=== PATIENT | female | born 1980 | race Two or more races ===

== ENCOUNTER → 2025-01-21 | Outpatient (CLI) | payer BC, SELFPAY ==
[2025-01-21 12:18] LABS: Basophils # (Auto) 0.1 Thou/mm3 (0.0-0.2); Basophils % (Auto) 1 % (0-2.5); Eosinophils # (Auto) 0.2 Thou/mm3 (0.0-0.5); Eosinophils % (Auto) 3 % (0-10); Hematocrit 36.9 % (36.0-46.0); Hemoglobin 12.9 g/dL (12.0-16.0); Immature Granulocytes % (Auto) 0 % (0-0); Immature Granulocytes Auto 0.03 Thou/mm3 (0.00-0.00); Lymphocytes # (Auto) 2.3 Thou/mm3 (1.0-4.8); Lymphocytes % (Auto) 25 % (10-50); Mean Corpuscular Hemoglobin 30.3 pg (25.0-35.0); Mean Corpuscular Volume 87 fL (80-100); Monocytes # (Auto) 0.6 Thou/mm3 (0.0-0.8); Monocytes % (Auto) 7 % (0-12); Neutrophils # (Auto) 5.9 Thou/mm3 (1.8-7.7); Neutrophils % (Auto) 65 % (37-80); Nucleated Red Blood Cell % 0 /100 WBC (0); Platelet Count 296 Thou/mm3 (140-440); RDW Standard Deviation 39.4 fL (36.4-46.3); Red Blood Count 4.26 Miln/mm3 (4.00-5.20)
[2025-01-21 12:30] LABS: Glucose Estimated Average 97 mg/dL (80-131)
[2025-01-21 12:41] LABS: Alanine Aminotransferase 10 U/L (10-49); Albumin, Serum 3.8 gm/dL (3.5-5.0); Albumin/Globulin Ratio 1.7 (1.2-2.2); Alkaline Phosphatase 45 U/L (46-116); Anion Gap 10 (7-16); BUN/Creatinine Ratio 12 Ratio (12-20); Bilirubin,Total 0.4 mg/dL (0.3-1.2); Blood Urea Nitrogen 7 mg/dL (9-23); Calcium 8.5 mg/dL (8.3-10.6); Calcium (Corrected) 8.7 mg/dL (8.5-10.1); Carbon Dioxide 25.9 mMol/L (20.0-31.0); Cardiac Risk Estimate 2.9 RATIO (3.7-5.6); Chloride 109 mMol/L (98-107); Cholesterol 127 mg/dL (132-200); Creatinine (Component) 0.6 mg/dL (0.6-1.3); Globulin 2.3 gm/dL (2.3-3.5); Glucose 85 mg/dL (74-106); HDL Cholesterol 44 mg/dL (40-60); LDL Cholesterol,Calculated 61 mg/dL (0-130); Osmolality,Calculated 285 (275-295); Potassium 3.6 mMol/L (3.4-5.1); Sodium 145 mMol/L (136-145); Total Protein 6.1 gm/dL (5.7-8.2); Triglycerides 109 mg/dL (30-150); eGFR > 60 See Note
[2025-01-21 12:45] LABS: Hepatitis B Surface Ab NonReact(Not Immune) (Immune); Hepatitis B Surface Antigen Non Reactive (Non React); Vitamin D 25 Hydroxy Total 24.1 ng/mL (7.3-40.2)
[2025-01-24 22:02] LABS: HCV RNA, PCR <15 NOT DETECTED IU/mL
[2025-01-25 06:58] LABS: HCV RNA, PCR Log IU <1.18 NOT DETECTED Log IU/mL; Hepatitis B Core Ab,Total* NONREACTIVE
== END | disposition home or self-care (01) ==
LOC: COPL 11:10
PROVIDERS: PCP Physician Assistant; Referring Provider Physician Assistant; Visit Provider Physician Assistant
DX: E55.9 Vitamin D deficiency, unspecified (principal); Z12.89 Encounter for screening for malignant neoplasm of other sites
CPT/HCPCS: 36415; 80053; 80061; 82306; 83036; 85025; 86704; 86706; 87340; 87522

== ENCOUNTER 2025-06-02 13:32 | Emergency (ER) | payer BC, SELFPAY ==
[2025-06-02 13:50] VITALS: BP 112/77; PULSE 102; RESP 19; TEMP 36.9; O2SAT 98; BMI 29.5
--- NOTE | 2025-06-02 14:21 | PD.EDRME ---
Rapid Medical Screening Exam E Arrival date/time: 06/02/25 13:32 This is a 44-year-old female that comes into the emergency room with complaints of swelling to her inner buttock. Patient states last time she had this problem they had a scan her and then they lanced it. Patient also complains of tampon stuck inside her. Patient states she thinks she placed went in this morning and was not able to take it out. Patient has no urinary symptoms, nausea, vomiting, diarrhea. I have greeted and performed a focused initial assessment of this patient. Initial appropriate labs ordered at this time. A comprehensive ED assessment and evaluation of the patient and analysis of all test and completion of medical decision making process will be conducted by additional ED provider. Chief Complaint: General Adult/Misc Complain Time Seen by Provider: 06/02/25 13:53 Vital signs: Vital Signs Temperature 98.5 F 06/02/25 13:50 Pulse Rate 102 H 06/02/25 13:50 Respiratory Rate 19 06/02/25 13:50 Blood Pressure 112/77 06/02/25 13:50 Pulse Oximetry (%) 98 06/02/25 13:50 Oxygen Delivery Method Room Air 06/02/25 13:50
--- NOTE | 2025-06-02 14:24 | XR_ITS ---
Examination: CT abdomen with intravenous contrast CT pelvis with intravenous contrast 2-D coronal reconstructions 2-D sagittal reconstructions Date and time of exam: June 02, 2025, 1734 hours, comparison CT pelvis 05/03/2022 INDICATIONS: Redness swelling and pain involving the right buttock region beginning 1 week ago. CTDI: vol (mGy) 8.96 DLP: (mGycm) 495 Technique: Multiple axial sections of the abdomen and pelvis have been obtained. 64 slice high-resolution scanner used. 3 mm axial sections have been obtained, post intravenous injection 60 cc of Isovue-370 2-D sagittal, coronal reconstructions obtained. Low dose protocols were performed. One or more of the following dose reduction techniques were used; automated exposure control, adjustment of the mA and/or KV according to patient size, use of iterative reconstruction technique. Findings: Pericardial effusion measuring up to 10 mm No visualized liver or splenic lesion Contracted gallbladder No pancreatic or adrenal mass No renal or ureteral calculi, no hydronephrosis Aorta normal size 15 mm fat-containing umbilical hernia Normal appendix No bowel obstruction or diverticulitis Partially retroverted uterus with hypodense endometrial mass, sagittal image 92, irregular margins, measuring up to 27 mm Mild free fluid in the cul-de-sac Cervical region is prominent Cellulitis pattern in the medial upper right thigh with skin thickening, axial image 265 which is slightly less prominent compared to CT pelvis 05/03/2022 No fluid-filled abscess Negative for osteomyelitis Advanced disc narrowing L5-S1 IMPRESSION: Abnormal hypodense endometrial mass measuring up to 27 mm and prominent cervix, recommend transvaginal trans abdominal pelvic sonography follow-up Cellulitis pattern in the upper medial thigh slightly less prominent compared to the CT pelvis 05/03/2025
[2025-06-02 14:55] LABS: Basophils # (Auto) 0.1 Thou/mm3 (0.0-0.2); Basophils % (Auto) 1 % (0-2.5); Eosinophils # (Auto) 0.1 Thou/mm3 (0.0-0.5); Eosinophils % (Auto) 1 % (0-10); Hematocrit 37.4 % (36.0-46.0); Hemoglobin 13.3 g/dL (12.0-16.0); Immature Granulocytes Auto 0.04 Thou/mm3 (0.00-0.00); Lymphocytes # (Auto) 2.6 Thou/mm3 (1.0-4.8); Lymphocytes % (Auto) 20 % (10-50); Mean Corpuscular HGB Conc 35.6 g/dl (31.0-37.0); Mean Corpuscular Hemoglobin 30.9 pg (25.0-35.0); Mean Corpuscular Volume 87 fL (80-100); Monocytes # (Auto) 0.9 Thou/mm3 (0.0-0.8); Monocytes % (Auto) 7 % (0-12); Neutrophils # (Auto) 9.2 Thou/mm3 (1.8-7.7); Neutrophils % (Auto) 71 % (37-80); Nucleated Red Blood Cell # 0.00 Thou/mm3 (0.00-0.00); Nucleated Red Blood Cell % 0 /100 WBC (0); Platelet Count 300 Thou/mm3 (140-440); RDW Standard Deviation 38.3 fL (36.4-46.3); Red Blood Count 4.31 Miln/mm3 (4.00-5.20); White Blood Count 12.9 Thou/mm3 (3.6-11.0)
[2025-06-02 15:20] LABS: Collection Type, Urine Voided
[2025-06-02 15:29] LABS: Alanine Aminotransferase 10 U/L (10-49); Albumin, Serum 4.3 gm/dL (3.5-5.0); Albumin/Globulin Ratio 1.7 (1.2-2.2); Alkaline Phosphatase 57 U/L (46-116); Anion Gap 8 (7-16); Aspartate Amino Transferase 16 U/L (0-34); BUN/Creatinine Ratio 13 Ratio (12-20); Bilirubin,Total 0.3 mg/dL (0.3-1.2); Blood Urea Nitrogen 8 mg/dL (9-23); Calcium 8.7 mg/dL (8.3-10.6); Calcium (Corrected) 8.7 mg/dL (8.5-10.1); Carbon Dioxide 26.6 mMol/L (20.0-31.0); Chloride 108 mMol/L (98-107); Creatinine (Component) 0.6 mg/dL (0.6-1.3); Estimated Creatinine Clearance 107.7 mL/min (>60); Globulin 2.5 gm/dL (2.3-3.5); Glucose 105 mg/dL (74-106); Osmolality,Calculated 283 (275-295); Potassium 3.0 mMol/L (3.4-5.1); Sodium 143 mMol/L (136-145); Total Protein 6.8 gm/dL (5.7-8.2); eGFR > 60 See Note
[2025-06-02 15:40] LABS: Bilirubin,Urine Negative (Negative); Blood,Urine 3+ (Negative); Color,Urine Lt-Yellow (Lt Yel-Yel); Culture Indicated,Urine Not Indicated; Glucose, Urine Negative (Negative); Ketones,Urine Negative (Negative); Leukocyte Esterase,Urine Negative (Negative); Nitrite,Urine Negative (Negative); PH,Urine 5.5 (5.0-7.0); Protein,Urine Negative (Neg - Trace); RBC,Urine 278 /hpf (0-3); Specific Gravity,Urine 1.022 (1.001-1.035); Squamous Epithelial Cell,Urine < 1 /hpf (0-5); Urobilinogen,Urine Negative mg/dL (0.0-1.0); WBC,Urine 3 /hpf (0-5)
[2025-06-02 16:08] LABS: HCG Qualitative,Urine Negative
[2025-06-02 16:13] LABS: Clarity,Urine Hazy (Clear/Hazy)
--- NOTE | 2025-06-02 16:45 | PD.EDFMALE ---
ED Female Urogenital RME/HPI General Chief complaint: General Adult/Misc Complain Stated complaint: TAMPON STUCK, R BUTTOCK ABSCESS PAIN Time Seen by Provider: 06/02/25 13:53 Arrival date/time: 06/02/25 13:32 RME / HPI RME / HPI Narrative: 06/02/25 13:32 This is a 44-year-old female that comes into the emergency room with complaints of swelling to her inner buttock. Patient states last time she had this problem they had a scan her and then they lanced it. Patient also complains of tampon stuck inside her. Patient states she thinks she placed went in this morning and was not able to take it out. Patient has no urinary symptoms, nausea, vomiting, diarrhea. I have greeted and performed a focused initial assessment of this patient. Initial appropriate labs ordered at this time. A comprehensive ED assessment and evaluation of the patient and analysis of all test and completion of medical decision making process will be conducted by additional ED provider. DR. HELEN MOHAMUD ED EVALUATION: 44-year-old female with no significant past medical history presents to the Emergency Department for concern of a tampon stuck in the vagina since approximately 8:30 AM. She reports being unable to feel or remove the string. Additionally, she complains of a painful boil on the right buttock that has recurred and is tender. Denies fever, chills, abdominal pain, or vaginal discharge. Related Data Previous Rx's ?Medication ?Instructions ?Recorded sulfamethoxazole 800 1 tab PO Q12H #14 tabs 06/04/25 mg-trimethoprim 160 mg tablet (Bactrim DS) Allergies Allergy/AdvReac Type Severity Reaction Status Date / Time No Known Allergies Allergy Verified 06/04/25 08:09 Review of Systems Review of Systems Systems Reviewed: All systems reviewed, normal except as documented Past Medical History Social History SMOKING STATUS: Never smoker SUBSTANCE USE: does not use ALCOHOL: Never ED Exam Narrative Physical exam: GENERAL APPEARANCE: alert and oriented x 4, well-developed, well-nourished, no acute distress VITALS: All vitals were reviewed and the pulse ox is 98% on room air, which is normal according to my interpretation. HEENT: Normocephalic, atraumatic; pupils equal, round, reactive to light; EOMI; mucous membranes pink, moist; oropharynx clear NECK: Supple LUNGS: CTABL; no wheezes, no rales, no rhonchi HEART: Regular rate, regular rhythm; normal S1, S2; no murmurs ABDOMEN: non distended; normal BS; soft, no tenderness, no guarding, no rebound; no masses, no organomegaly, no hernia PELVIC EXAM: No tampon visualized or retained in the vaginal vault; cervix appears normal; no discharge, erythema, or lesions BACK: no CVA tenderness EXTREMITIES: atraumatic; no edema NEUROLOGIC: awake; alert and oriented x4; cranial nerves II-XII grossly intact; no focal sensory or motor deficits PSYCHIATRIC: appropriate mood and affect SKIN: warm, dry, normal color; no rashes Course Quality Measures none Orders Category Date Time Status CT Screening NOW Care 06/02/25 14:[address] abdomen pelvis w con Stat Exams 06/02/25 14:24 Completed CBC Stat Lab 06/02/25 14:43 Completed Comprehensive Metabolic Panel Stat Lab 06/02/25 14:43 Completed HCG Qualitative,Urine Stat Lab 06/02/25 15:14 Completed Urinalysis, C/S if Indicated Stat Lab 06/02/25 15:14 Completed HYDROcodone*/APAP 5/325 [Shandaken 5/325] Med 06/02/25 16:41 Discontinued 1 tab PO X1 ONE Ketorolac Inj [Toradol Inj] Med 06/02/25 16:41 Discontinued 30 mg IM X1 ONE Vital Signs Vital signs: Vital Signs Temperature 98.5 F 06/02/25 13:50 Pulse Rate 102 H 06/02/25 13:50 Respiratory Rate 19 06/02/25 13:50 Blood Pressure 112/77 06/02/25 13:50 Pulse Oximetry (%) 98 06/02/25 13:50 Oxygen Delivery Method Room Air 06/02/25 13:50 Urogenital - Female MDM Narrative MDM Narrative:: I, Tatiana [place] am scribing for and in the presence of Dr. Smith. Patient data External records reviewed:: [facility] previous records Clinical information provided by:: patient Social determinants that could affect healthcare access:: none Patient has the following chronic illnesses:: Denies any PMHx, surgeries, daily medications, or known allergies. How is presenting disease/condition affected by chronic disease/condition?: no chronic disease Evaluation data The following diagnostics were reviewed and interpreted by me:: lab results and radiology exam(s) Lab and/or radiology exams considered but not ordered:: none Interpretation Summary: Pending. Medications / Prescriptions Medications or Prescriptions considered but not ordered:: none Medication administrations:: Medication Administration History Discontinued Medications Hydrocodone Bitart/Acetaminophen (Hydrocodone/Apap 5/325 Tablet) 1 tab PO X1 ONE Stop: 06/02/25 16:42 Last Admin: 06/02/25 16:49 Dose: Not Given Documented By: HORACIO Non-Admin Reason: Per Protocol Ketorolac Tromethamine (Ketorolac Inj 30 Mg/Ml Vial) 30 mg IM X1 ONE Stop: 06/02/25 16:42 Last Admin: 06/02/25 16:47 Dose: 30 mg Documented By: Evelyne see above Consultations Consultation(s) initiated? (list below): No Diagnosis Urogenital Female Differential Diagnosis: other (Vaginal foreign body, vulvar abscess, and cellulitis.) Most likely diagnosis given after review of the tests above:: No official diagnoses at this time, still pending diagnostic tests. Patient signout to the spooling machine operator provider. Admission Indicated Admission indicated?: not indicated Explain why admission is indicated or not indicated:: No final disposition plan at this time, still pending diagnostic tests. Patient signout to the spooling machine operator provider. Admission Request Was there a request for admission?: No Disposition Plan Disposition Plan: other (specify) (Patient signout to the spooling machine operator provider.) Discharge Plan Prescriptions/Referrals Prescriptions/Med Rec: No Action sulfamethoxazole-trimethoprim [Bactrim DS] 800-160 mg tablet 1 tab PO Q12H Qty: 14 0RF Referrals: Sara Greco PA-C [Primary Care Provider] - In 1 week Problem List Clinical Impression: Abscess of buttock, right Patient/Caregiver Discharge Instructions Print Language: Frisian
[2025-06-02] MEDS: KETOROLAC INJ 30 MG/ML VIAL IM (16:47)
--- NOTE | 2025-06-02 16:49 | PC.NURSE ---
JUDITH NOT GIVEN, PT DRIVING AND HAS NO ONE THAT CAN PICK HER UP
--- NOTE | 2025-06-02 16:57 | PC.NURSE ---
nax1 at this time
--- NOTE | 2025-06-02 19:15 | PD.EDADDENDU ---
Emergency Room Addendum <Lorena Carbone - Last Filed: 06/02/25 20:22> Addendum Narrative: 1800: Care assumed from Dr. Smith, the previous shift emergency physician. Past medical, surgical, social and family history reviewed. Vitals and home medications reviewed. Results and treatment plan discussed. I will assume the care of the patient at this time and will follow the patient. Please refer to the emergency department record for history and examination from initial visit. RADIOLOGY RESULTS: [facility] Report Signed Patient: TREY GUTIERREZ [facility]. Record#: [id number] Birthdate: 1980 Age/Sex: 44 / F [facility] Attending Dr: Ordering Physician: Radha Robb NP Date of Service: 06/02/25 Procedure(s): CT abdomen pelvis w con Accession Number(s): [id number] cc: Sara Greco; Jeremy Alexander MD; Radha Robb NP~ Examination: CT abdomen with intravenous contrast CT pelvis with intravenous contrast 2-D coronal reconstructions 2-D sagittal reconstructions Date and time of exam: June 02, 2025, 1734 hours, comparison CT pelvis 05/03/2022 INDICATIONS: Redness swelling and pain involving the right buttock region beginning 1 week ago. CTDI: vol (mGy) 8.96 DLP: (mGycm) 495 Technique: Multiple axial sections of the abdomen and pelvis have been obtained. 64 slice high-resolution scanner used. 3 mm axial sections have been obtained, post intravenous injection 60 cc of Isovue-370 2-D sagittal, coronal reconstructions obtained. Low dose protocols were performed. One or more of the following dose reduction techniques were used; automated exposure control, adjustment of the mA and/or KV according to patient size, use of iterative reconstruction technique. Findings: Pericardial effusion measuring up to 10 mm No visualized liver or splenic lesion Contracted gallbladder No pancreatic or adrenal mass No renal or ureteral calculi, no hydronephrosis Aorta normal size 15 mm fat-containing umbilical hernia Normal appendix No bowel obstruction or diverticulitis Partially retroverted uterus with hypodense endometrial mass, sagittal image 92, irregular margins, measuring up to 27 mm Mild free fluid in the cul-de-sac Cervical region is prominent Cellulitis pattern in the medial upper right thigh with skin thickening, axial image 265 which is slightly less prominent compared to CT pelvis 05/03/2022 No fluid-filled abscess Negative for osteomyelitis Advanced disc narrowing L5-S1 IMPRESSION: Abnormal hypodense endometrial mass measuring up to 27 mm and prominent cervix, recommend transvaginal trans abdominal pelvic sonography follow-up Cellulitis pattern in the upper medial thigh slightly less prominent compared to the CT pelvis 05/03/2025 Dictated By: Jeremy Alexander MD Signed By: <Electronically signed by Jeremy Alexander MD in [place]> 06/02/251809 <Malgorzata Carrillo MD - Last Filed: 06/02/25 20:34> Addendum Narrative: 1800: Care assumed from Dr. Smith, the previous shift emergency physician. Past medical, surgical, social and family history reviewed. Vitals and home medications reviewed. Results and treatment plan discussed. I will assume the care of the patient at this time and will follow the patient. Please refer to the emergency department record for history and examination from initial visit. Patient left AGAINST MEDICAL ADVICE prior to my evaluation. I did call the patient, discussed results of the workup and recommended that she return to the emergency department, however, states that she is unable to come back bc of work. She states that she will return to the emergency department on Tuesday. States that she is unable to come back at this time because of work. Denies any swelling in the perineal area. No difficulty with urination. No fever. 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 Advised that is important that she return to the emergency department to continue to care as soon as possible. States that she will return on Tuesday. RADIOLOGY RESULTS: [facility] Report Signed Patient: TREY GUTIERREZ [facility]. Record#: [id number] Birthdate: 1980 Age/Sex: 44 / F Location: [facility] Attending Dr: Ordering Physician: Radha Robb NP Date of Service: 06/02/25 Procedure(s): CT abdomen pelvis w con Accession Number(s): [id number] cc: Sara Greco; Jeremy Alexander MD; Radha Robb NP~ Examination: CT abdomen with intravenous contrast CT pelvis with intravenous contrast 2-D coronal reconstructions 2-D sagittal reconstructions Date and time of exam: June 02, 2025, 1734 hours, comparison CT pelvis 05/03/2022 INDICATIONS: Redness swelling and pain involving the right buttock region beginning 1 week ago. CTDI: vol (mGy) 8.96 DLP: (mGycm) 495 Technique: Multiple axial sections of the abdomen and pelvis have been obtained. 64 slice high-resolution scanner used. 3 mm axial sections have been obtained, post intravenous injection 60 cc of Isovue-370 2-D sagittal, coronal reconstructions obtained. Low dose protocols were performed. One or more of the following dose reduction techniques were used; automated exposure control, adjustment of the mA and/or KV according to patient size, use of iterative reconstruction technique. Findings: Pericardial effusion measuring up to 10 mm No visualized liver or splenic lesion Contracted gallbladder No pancreatic or adrenal mass No renal or ureteral calculi, no hydronephrosis Aorta normal size 15 mm fat-containing umbilical hernia Normal appendix No bowel obstruction or diverticulitis Partially retroverted uterus with hypodense endometrial mass, sagittal image 92, irregular margins, measuring up to 27 mm Mild free fluid in the cul-de-sac Cervical region is prominent Cellulitis pattern in the medial upper right thigh with skin thickening, axial image 265 which is slightly less prominent compared to CT pelvis 05/03/2022 No fluid-filled abscess Negative for osteomyelitis Advanced disc narrowing L5-S1 IMPRESSION: Abnormal hypodense endometrial mass measuring up to 27 mm and prominent cervix, recommend transvaginal trans abdominal pelvic sonography follow-up Cellulitis pattern in the upper medial thigh slightly less prominent compared to the CT pelvis 05/03/2025 Dictated By: Jeremy Alexander MD Signed By: <Electronically signed by Jeremy Alexander MD in [place]> 06/02/25 [id number]
== END 2025-06-02 20:16 | disposition home or self-care (01) ==
PROVIDERS: Nurse Practitioner Family; Emergency Provider Emergency Medicine; PCP Physician Assistant
DX: L02.31 Cutaneous abscess of buttock (principal)
CPT/HCPCS: 36415; 74177; 80053; 81001; 81025; 85025; 96372; 99283; A4649; J1885; Q9967

== ENCOUNTER 2025-06-04 08:05 | Emergency (ER) | payer BC, SELFPAY ==
[2025-06-04 08:16] VITALS: BP 119/77; PULSE 72; RESP 16; TEMP 36.8; O2SAT 99
--- NOTE | 2025-06-04 08:28 | XR_ITS ---
Examination: Transvaginal ultrasound of the pelvis, complete Technique: Transvaginal sonographic images pelvis performed using rodriguez scale imaging Exam date and time: June 04, 2025, 0935 hours INDICATIONS: Abnormal endometrial mass measuring up to 27 mm with prominent cervix on CT examination pelvis June 02, 2025 FINDINGS: Uterus 9.5 cm Fluid versus blood in the endometrium Mass in the endometrium which is vascular 12 x 6 x 13 mm Right ovary 2.6 cm arterial flow Left ovary 2.7 cm arterial flow IMPRESSION: Recommend MRI pelvis follow-up pre and postcontrast, to assess the abnormal endometrium and exclude early malignant neoplasm of the endometrium.
--- NOTE | 2025-06-04 08:28 | XR_ITS ---
Examination: Abdomen sonogram, complete Date and time of exam: June 04, 2025, 0851 hours INDICATIONS: Abdominal pain this week. Technique: Multiple real-time grayscale transabdominal sonographic images of the abdomen have been obtained. Findings: Normal gallbladder Normal common bile duct 0.2 cm Pancreatic head 2.8 cm Aorta not enlarged. Liver 15 cm fatty infiltration Normal hepatopetal portal venous flow Patent IVC Right kidney 10.7 cm renal cortex 1.8 cm Left kidney 10.5 cm renal cortex 1.7 cm Moderate renal scar formation Spleen 9.8 cm IMPRESSION: Normal gallbladder Normal common bile duct Moderate bilateral renal scar formation
--- NOTE | 2025-06-04 08:29 | EDRME_ITS ---
Rapid Medical Screening Exam [facility] Arrival date/time: 06/04/25 08:05 44-year-old female with no known medical history presents to the emergency room with a chief complaint of tenderness and pain to an abscess in her buttocks area. The patient also states she was sent over by her primary care provider due to abnormal CT results. I have greeted and performed a focused initial assessment of this patient. A comprehensive ED assessment and evaluation of the patient, analysis of all test results, and completion of the medical decision making process will be conducted by additional ED providers. Chief Complaint: Skin/Abscess/Foreign Body Vital signs: Vital Signs Temperature 98.2 F 06/04/25 08:16 Pulse Rate 72 06/04/25 08:16 Respiratory Rate 16 06/04/25 08:16 Blood Pressure 119/77 06/04/25 08:16 Pulse Oximetry (%) 99 06/04/25 08:16 Oxygen Delivery Method Room Air 06/04/25 08:16 Vital signs reviewed by provider: Yes
[2025-06-04 08:49] LABS: Basophils # (Auto) 0.1 Thou/mm3 (0.0-0.2); Basophils % (Auto) 1 % (0-2.5); Eosinophils # (Auto) 0.3 Thou/mm3 (0.0-0.5); Eosinophils % (Auto) 3 % (0-10); Hematocrit 39.7 % (36.0-46.0); Hemoglobin 13.6 g/dL (12.0-16.0); Immature Granulocytes Auto 0.02 Thou/mm3 (0.00-0.00); Lymphocytes # (Auto) 3.3 Thou/mm3 (1.0-4.8); Lymphocytes % (Auto) 36 % (10-50); Mean Corpuscular HGB Conc 34.3 g/dl (31.0-37.0); Mean Corpuscular Hemoglobin 30.2 pg (25.0-35.0); Mean Corpuscular Volume 88 fL (80-100); Monocytes # (Auto) 0.8 Thou/mm3 (0.0-0.8); Monocytes % (Auto) 9 % (0-12); Neutrophils # (Auto) 4.7 Thou/mm3 (1.8-7.7); Neutrophils % (Auto) 51 % (37-80); Nucleated Red Blood Cell # 0.00 Thou/mm3 (0.00-0.00); Nucleated Red Blood Cell % 0 /100 WBC (0); Platelet Count 349 Thou/mm3 (140-440); RDW Standard Deviation 38.9 fL (36.4-46.3); Red Blood Count 4.50 Miln/mm3 (4.00-5.20); White Blood Count 9.2 Thou/mm3 (3.6-11.0)
[2025-06-04 09:15] LABS: Collection Type, Urine Clean Catch
[2025-06-04 09:31] LABS: Bacteria,Urine Rare; Bilirubin,Urine Negative (Negative); Blood,Urine 1+ (Negative); Color,Urine Yellow (Lt Yel-Yel); Glucose, Urine Negative (Negative); Hyaline Casts,Urine < 1 /hpf (0-1); Ketones,Urine Negative (Negative); Leukocyte Esterase,Urine Positive (Negative); Nitrite,Urine Negative (Negative); PH,Urine 6.0 (5.0-7.0); Protein,Urine Trace (Neg - Trace); RBC,Urine 11 /hpf (0-3); Specific Gravity,Urine 1.029 (1.001-1.035); Squamous Epithelial Cell,Urine 18 /hpf (0-5); Urobilinogen,Urine Negative mg/dL (0.0-1.0); WBC,Urine 2 /hpf (0-5)
[2025-06-04 09:35] LABS: Clarity,Urine Hazy (Clear/Hazy)
[2025-06-04 09:42] LABS: Alanine Aminotransferase 9 U/L (10-49); Alkaline Phosphatase 50 U/L (46-116); Anion Gap 9 (7-16); Aspartate Amino Transferase 16 U/L (0-34); BUN/Creatinine Ratio 12 Ratio (12-20); Bilirubin,Total 0.5 mg/dL (0.3-1.2); Blood Urea Nitrogen 7 mg/dL (9-23); Calcium 8.6 mg/dL (8.3-10.6); Carbon Dioxide 27.8 mMol/L (20.0-31.0); Chloride 107 mMol/L (98-107); Creatinine (Component) 0.6 mg/dL (0.6-1.3); Estimated Creatinine Clearance 108.7 mL/min (>60); Glucose 90 mg/dL (74-106); Lipase 34 U/L (12-53); Osmolality,Calculated 284 (275-295); Potassium 3.4 mMol/L (3.4-5.1); Sodium 144 mMol/L (136-145); Total Protein 6.8 gm/dL (5.7-8.2); eGFR > 60 See Note
[2025-06-04 09:42] LABS: HCG Qualitative,Urine Negative
[2025-06-04 09:58] LABS: Albumin, Serum 4.4 gm/dL (3.5-5.0); Albumin/Globulin Ratio 1.8 (1.2-2.2); Calcium (Corrected) 8.6 mg/dL (8.5-10.1); Globulin 2.4 gm/dL (2.3-3.5)
--- NOTE | 2025-06-04 11:23 | PD.EDSKIN ---
ED Skin Abcess FB-RME/HPI General Chief complaint: Skin/Abscess/Foreign Body Stated complaint: SEEN TUESDAY, VAG BUMP AND MD WAS US DONE Time Seen by Provider: 06/04/25 11:18 Source: patient Arrival date/time: 06/04/25 08:05 Mode of arrival: ambulatory Limitations: no limitations RME / HPI RME / HPI narrative: 06/04/25 08:05 44-year-old female with no known medical history presents to the emergency room with a chief complaint of tenderness and pain to an abscess in her buttocks area. The patient also states she was sent over by her primary care provider due to abnormal CT results. I have greeted and performed a focused initial assessment of this patient. A comprehensive ED assessment and evaluation of the patient, analysis of all test results, and completion of the medical decision making process will be conducted by additional ED providers. Dr. Carrillo evaluation. Patient is a 44-year-old female that is in the emergency department with concerns for right buttock infection as well as for follow-up of a possible endometrial mass that was diagnosed on ultrasound on her last visit. Patient left before she could discuss her results with the provider. She was advised to come back to the emergency department. Patient left because she had to go to work. Patient denies fevers chills nausea vomiting abdominal pain dysuria hematuria melena bloody stools. Patient is descending ultrasound past that was normal. Related Data Previous Rx's ?Medication ?Instructions ?Recorded sulfamethoxazole 800 1 tab PO Q12H #14 tabs 06/04/25 mg-trimethoprim 160 mg tablet (Bactrim DS) Allergies Allergy/AdvReac Type Severity Reaction Status Date / Time No Known Allergies Allergy Verified 06/04/25 08:09 ED Exam General Limitations: Present no limitations General appearance: Present alert and in no apparent distress Head Head exam: Present atraumatic and normocephalic Eye Eye exam: Present normal appearance and PERRL ENT ENT exam: Present normal exam and normal oropharynx Neck Neck exam: Present normal inspection and full ROM Chest Chest inspection: Present normal inspection and symmetric chest wall rise Respiratory Respiratory exam: Present normal lung sounds bilaterally; Absent respiratory distress Cardiovascular Cardiovascular exam: Present regular rate and normal rhythm Abdominal Exam Abdominal exam: Present soft and tenderness; Absent distention External exam: Present other (No lesions in the perineum) Extremities Exam Extremities exam: Present normal inspection and full ROM Neurological Exam Neurological exam: Present alert, oriented X3 and CN II-XII intact Skin Skin exam: Present warm, dry and other (Patient with 0.5 cm area of mild induration on the right buttock, no surrounding erythema, no fluctuance or crepitus, does not involve the anus by the pain, no perianal induration) Course Quality Measures none Orders Category Date Time Status EKG (ED ONLY) *Do not use* NOW Care 06/04/25 11:32 Completed Incision and Drainage Set Up X1 Care 06/04/25 08:28 Active EKG (ED Only) Stat Exams 06/04/25 11:32 Draft US abdomen Stat Exams 06/04/25 08:28 Completed US transvaginal Stat Exams 06/04/25 08:28 Completed CBC Stat Lab 06/04/25 08:36 Completed CMP [Comprehensive Metabolic Panel] Stat Lab 06/04/25 08:36 Completed HCG Qualitative,Urine Stat Lab 06/04/25 09:06 Completed Lipase Stat Lab 06/04/25 08:36 Completed Troponin I Stat Lab 06/04/25 12:00 Completed UA [Urinalysis] Stat Lab 06/04/25 09:06 Completed Urine Culture Stat Lab 06/04/25 09:06 Received Trimethoprim/Sulfa 160/800 Ds [Bactrim Ds] Med 06/04/25 11:24 Discontinued 1 tab PO X1 ONE Vital Signs Vital signs: Vital Signs Temperature 98.2 F 06/04/25 08:16 Pulse Rate 72 06/04/25 08:16 Respiratory Rate 16 06/04/25 08:16 Blood Pressure 119/77 06/04/25 08:16 Pulse Oximetry (%) 99 06/04/25 08:16 Oxygen Delivery Method Room Air 06/04/25 08:16 Skin / Abscess / Foreign Body MDM Narrative MDM Narrative:: Patient is a 43-year-old female is in the emergency department with concerns for right buttock abscess as well as abnormal pelvic ultrasound. Vital signs and exam as listed. Concern for abscess of the right buttock, patient without any surrounding erythema, less likely cellulitis. Physical exam not consistent with a perianal or perirectal abscess. No perineal involvement less likely necrotizing perineal infection. No fluctuance or crepitus. Patient abdomen soft nondistended nontender. Also concern for pelvic mass which may be fibroid, malignancy or others. Prior provider evaluated patient. Ordered labs, pelvic ultrasound. Per chart review patient was seen in the emergency department on June 02, she left prior to the results of her workup being discussed with the patient. She had a CT scan at that time that identified a abnormal hypodense endometrial mass measuring up to 27 mm and prominent in the cervix. Also had a cellulitis pattern in the upper medial upper right thigh less compared to prior CT in 2021. No evidence of a deep space abscess, focal fluid collection amenable to drainage. Incidentally noted also pericardial effusion measuring up to 10 mm. Patient does not have any chest pain shortness of breath palpitations. Given this finding I did order an EKG and a troponin level. Labs today without any acute hematologic or significant metabolic abnormality. Urinalysis with 18 squamous cells, 2 white blood cells 11 red blood cells leukoesterase positive with rare bacteria. Patient does not have any dysuria less likely infected. Patient is not . Right upper quadrant ultrasound unremarkable, transvaginal ultrasound shows a mass in the endometrium which is vascular 12 x 6 x 13 mm. Given these findings, advised patient that it is important that she establish care with her oncologist, to get further evaluation of this mass as it may be malignant. Patient is hemodynamically stable and in distress does not have any abdominal pain urinary or bowel dysfunction at this time. EKG performed today at 11:44 AM notable for sinus rhythm, heart rate 61, normal intervals, nonspecific T wave changes, not a cardiac alert. Troponin not elevated. Patient discharged hemodynamically stable not distressed questions answered Patient data External records reviewed:: [facility] previous records Clinical information provided by:: patient Social determinants that could affect healthcare access:: none Patient has the following chronic illnesses:: See MDM How is presenting disease/condition affected by chronic disease/condition?: no chronic disease Evaluation data The following diagnostics were reviewed and interpreted by me:: lab results, radiology exam(s) and EKG tracing(s) Lab and/or radiology exams considered but not ordered:: None Interpretation Summary: See [facility] Medications / Prescriptions Medications or Prescriptions considered but not ordered:: None Medication administrations:: Medication Administration History Discontinued Medications Trimethoprim/Sulfamethoxazole (Trimethoprim/Sulfa 160/800 Ds Tablet) 1 tab PO X1 ONE Stop: 06/04/25 11:25 Last Admin: 06/04/25 11:28 Dose: 1 tab Documented By: OA See above Consultations Consultation(s) initiated? (list below): No Diagnosis Skin/Abscess Differential Diagnosis: other Most likely diagnosis given after review of the tests above:: Cellulitis, endometrial mass Admission Indicated Admission indicated?: not indicated Admission Request Was there a request for admission?: No Disposition Plan Disposition Plan: Discharge Discharge Attestation Discharge Attestation: The patient and all family members were given an opportunity to ask questions and understood the discharge instructions. Discharge instructions specifically effects, indications for sooner follow up or return to the emergency department, and the expected course of current diagnosis. Patient condition: Stable Discharge Plan Plan Patient Disposition: HOME (Self Care) Prescriptions/Referrals Prescriptions/Med Rec: New sulfamethoxazole-trimethoprim [Bactrim DS] 800-160 mg tablet 1 tab PO Q12H Qty: 14 0RF Referrals: Sara Greco PA-C [Primary Care Provider] - In 1 week Problem List Clinical Impression: Cellulitis, Endometrial mass, Pericardial effusion Patient/Caregiver Discharge Instructions Education Materials: ED Cellulitis Additional Instructions: Your CT scan and pelvic ultrasounds identified a mass in the endometrium of your uterus which is vascular 12 x 6 x 13 mm. It is unclear what this mass is, and because of this it is important that you follow-up with your primary care doctor as well as establish care with a radio mechanic helper for further evaluation of the mass as there is always concern that this could be cancer. The scan also did not identify an abscess or other focal fluid collection at your right buttock amenable to drainage. Please take your antibiotics for your cellulitis as prescribed. Also incidentally the CT scan identified that you had some fluid around the heart. Because you are asymptomatic and the rest of the workup your cardiac workup is normal, it is important that you follow-up with a process control supervisor to further discuss. Return immediately if you have worsening symptoms or new symptoms of concern. Print Language: [place] Stand Alone Forms: Sara Award Info., Patient Portal Info Letter
[2025-06-04] MEDS: TRIMETHOPRIM/SULFA 160/800 DS TABLET 1 TAB PO (11:28)
--- NOTE | 2025-06-04 11:32 | EKG_ITS ---
[facility] Test Date: 2025-06-04 Pat Name: TREY GUTIERREZ Department: Room: - Gender: Female Guide Travel: : 1980 Requested By: Malgorzata Alcantar Order Number: [id number] Reading MD: Malgorzata Alcantar Measurements Intervals [place] Rate: 61 P: 23 CA: 124 QRS: -12 QRSD: 96 T: 24 QT: 407 QTc: 410 Interpretive Statements SINUS RHYTHM LOW QRS VOLTAGE IN PRECORDIAL LEADS [QRS DEFLECTION < 1.0 mV IN CHEST LEADS] No previous ECG available for comparison /[id number]/[email or web address]/[id number]
[2025-06-04 12:44] LABS: Troponin I < 0.002 ng/mL (0.0-0.045)
[2025-06-04 13:15] VITALS: BP 122/82; PULSE 78
== END 2025-06-04 13:15 | disposition home or self-care (01) ==
PROVIDERS: Nurse Practitioner Family; Emergency Provider Emergency Medicine; PCP Physician Assistant
DX: L02.31 Cutaneous abscess of buttock (principal)
CPT/HCPCS: 36415; 76700; 76830; 80053; 81001; 81025; 83690; 84484; 85025; 87077; 87086; 87186; 93005; 99282; A9270